=== PATIENT | male | born 1995 | race Hispanic/Latino ===

== ENCOUNTER 2025-02-20 23:41 | Emergency (ER) | payer SELFPAY ==
[2025-02-21] MEDS ORDERED: Lidocaine Viscous Sol 2% 15 ml UD Cup ONE (00:25)
[2025-02-21] MEDS ORDERED: Mag-Al 1200 mg/1200 mg/30 ML UDCUP ONE (00:25)
[2025-02-21 00:36] LABS: #Basophils 0.09 10x3/uL (0.0-0.2); #Eosinophils 1.74 10x3/uL (0.0-0.5); #Monocytes 0.83 10x3/uL (0.0-1.1); #Neutrophils 4.42 10x3/uL (1.5-8.4); %Basophils 0.9 % (0.0-2.0); %Eosinophils 18.0 % (0.0-6.0); %Lymphocytes 26.7 % (18.0-47.0); %Monocytes 8.6 % (0.0-10.0); %Neutrophils 45.6 % (40.0-75.0); Hematocrit 41.7 % (38.8-50.0); Hemoglobin 14.1 g/dL (13.5-17.5); Mean Corpuscular Hemoglobin 28.8 pg (27.0-33.0); Mean Corpuscular Volume 85.3 fL (81.2-95.1); Platelet Count 289 10x3/uL (150-450); Red Blood Cell (RBC) Count 4.89 10x6/uL (4.32-5.72); White Blood Cell (WBC) Count 9.69 10x3/uL (3.5-10.5)
[2025-02-21 00:54] LABS: ALT (SGPT) 15 U/L (Less than 45); AST (SGOT) 21 U/L (11-34); Albumin 4.4 g/dL (3.1-4.5); Alkaline Phosphatase 42 U/L (40-110); Anion Gap 14 mmol/L (10-20); BUN (Urea Nitrogen) 14 mg/dL (8.9-20.6); Bilirubin, Total 0.4 mg/dL (0.3-1.2); Calc. Creatinine Clearance 0 mL/min (70-130); Calcium 9.2 mg/dL (7.8-10.44); Carbon Dioxide 23 mmol/L (22-29); Chloride 107 mmol/L (98-107); Globulin 2.7 g/dL (2.4-3.5); Glucose 136 mg/dL (70-105); Lipase 40 U/L (8-78); Potassium 3.6 mmol/L (3.5-5.1); Sodium 140 mmol/L (136-145)
== END 2025-02-21 01:31 | disposition home or self-care (01) ==
LOC: CSHERS 23:41
DX: K29.70 Gastritis, unspecified, without bleeding (principal)
CPT/HCPCS: 76705; 80053; 83690; 85025; 96372; J2270; Q0162